=== PATIENT | male | born 1960 | race African-American/Black ===

== ENCOUNTER 2019-03-13 11:31 | Emergency (ER) | payer OTHER, SELFPAY ==
[2019-03-13 12:42] LABS: Absolute Lymphocytes (CBC) 1.3 K/uL (0.7-4.9); Absolute Monocytes 1.2 K/uL (0.1-1.3); Absolute Neutrophil 10.3 K/uL (1.8-8.0); Basophils % 0.4 % (0-1.3); Eosinophils % 0.4 % (0-4.4); Hematocrit 46.3 % (39.6-49.0); Lymphocytes % 9.8 % (15.3-44.8); Monocytes % 9.3 % (3.3-12.3); RBC Red Blood Cell Count 4.79 M/uL (4.33-5.43)
[2019-03-13 13:02] LABS: Potassium 4.1 mmol/L (3.5-5.1)
[2019-03-13] MEDS ORDERED: ACETAMINOPHEN 325 MG TABLET ONE (13:02)
--- NOTE | 2019-03-13 13:36 | RAD REPORT ---
EXAM DESCRIPTION: CT - Soft Tissue Neck W/Contr - 03/13/2019 1:20 pm CLINICAL HISTORY: Right neck pain and neck swelling COMPARISON: None. TECHNIQUE: Computed axial tomography of the neck was obtained. 50 cc Isovue 300 was administered in travenously. Coronal and sagittal reconstruction was performed. All CT scans are performed using dose optimization technique as appropriate and may include automated exposure control or mA/KV adjustment according to patient size. FINDINGS: The right submandibular gland is mildly enlarged. Edema is present within the surrounding fat and tissues of the right face. Two calculi are present within right Huron's duct with the large st measuring 12 millimeters. Mild edema is present within the right lateral aspect of the hypopharynx Mild reactive lymphadenopathy The sinuses and mastoids are clear. IMPRESSION: Two calculi within the right Huron's duct resulting in inflammation of right submandib ular gland and surrounding tissues
[2019-03-13] MEDS ORDERED: AMPICILLIN/SULBACTAM 3GM/VIAL ONE (14:44)
[2019-03-13] MEDS ORDERED: NA CHLORIDE 0.9% 250 ML ONE (14:44)
[2019-03-13] MEDS ORDERED: HYDROCODONE/APAP 5/325 MG TAB ONE (14:44)
--- NOTE | 2019-03-13 16:04 | EDPHYS ---
Physician Documentation [facility] Name: Darrell Nieves Age: 58 yrs Sex: Male : 1960 Arrival Date: 03/13/2019 Time: 11:34 Bed 18 Private MD: ED Physician Rhett Frias HPI: 03/13 15:52 This 58 yrs old Black Male presents to ER via Ambulatory with complaints of Sore gs Throat, Headache. 15:52 The patient presents with sore throat, dysphagia. Onset: The symptoms/episode gs began/occurred 2 day(s) ago. Severity of symptoms: At their worst the symptoms were severe, in the emergency department the symptoms are unchanged. Modifying factors: the symptoms are aggravated by swallowing. Associated signs and symptoms: Pertinent positives: fever. The patient has experienced similar episodes in the past, a few times. Historical: - Allergies: 11:48 No Known Allergies; iw - Home Meds: 11:48 metoprolol tartrate 25 mg Oral tab 2 tabs twice a day [Active]; Klor-Con 10 10 mEq Oral iw TbER 1 tab 2 times per day [Active]; isosorbide dinitrate 20 mg Oral tab 1 tab 3 times per day [Active]; hydralazine 25 mg oral tab 1.5 tab three times a day [Active]; furosemide 40 mg Oral tab 2 tabs twice a day [Active]; Entresto 49-51 mg Oral tab 1 tab 2 times per day [Active]; aspirin 325 mg Oral tab 1 tab once daily [Active]; - PMHx: 11:48 cardiomegaly; CHF; iw - PSHx: 11:48 None; iw - Immunization history:: Adult Immunizations not up to date. - Social history:: Smoking status: Patient uses tobacco products, smokes one-half pack cigarettes per day. - Ebola Screening: : Patient negative for fever greater than or equal to 101.5 degrees Fahrenheit, and additional compatible Ebola Virus Disease symptoms Patient denies exposure to infectious person Patient denies travel to an Ebola-affected area in the 21 days before illness onset No symptoms or risks identified at this time. ROS: 15:52 All other systems are negative. gs Exam: 15:52 Head/Face: Normocephalic, atraumatic. Eyes: Pupils equal round and reactive to light, gs extra-ocular motions intact. Lids and lashes normal. Conjunctiva and sclera are non-icteric and not injected. Cornea within normal limits. Periorbital areas with no swelling, redness, or edema. Chest/axilla: Normal chest wall appearance and motion. Nontender with no deformity. No lesions are appreciated. Cardiovascular: Regular rate and rhythm with a normal S1 and S2. No gallops, murmurs, or rubs. Normal PMI, no JVD. No pulse deficits. Respiratory: Lungs have equal breath sounds bilaterally, clear to auscultation and percussion. No rales, rhonchi or wheezes noted. No increased work of breathing, no retractions or nasal flaring. Abdomen/GI: Soft, non-tender, with normal bowel sounds. No distension or tympany. No guarding or rebound. No evidence of tenderness throughout. Back: No spinal tenderness. No costovertebral tenderness. Full range of motion. Skin: Warm, dry with normal turgor. Normal color with no rashes, no lesions, and no evidence of cellulitis. MS/ Extremity: Pulses equal, no cyanosis. Neurovascular intact. Full, normal range of motion. Neuro: Awake and alert, GCS 15, oriented to person, place, time, and situation. Cranial nerves II-XII grossly intact. Motor strength 5/5 in all extremities. Sensory grossly intact. Cerebellar exam normal. Normal gait. 15:52 Constitutional: The patient appears alert, awake. 15:52 ENT: Mouth: floor mild tender and swollen, Posterior pharynx: erythema, that is mild. 15:52 Neck: large swollen firm nonmobile mild tendersubmandibular mass. Vital Signs: 11:48 BP 168 / 101; Pulse 100; Resp 18 S; Temp 99.1(O); Pulse Ox 99% on R/A; Weight 111.13 iw kg; Height 5 ft. 10 in. (177.80 cm); Pain 8/10; 12:15 BP 155 / 105; Pulse 91; Resp 16; Pulse Ox 98% ; bp 12:54 BP 161 / 103; Pulse 90; Resp 14; Pulse Ox 97% ; bp 13:40 BP 151 / 106; Pulse 85; Resp 18; Pulse Ox 95% ; bp 14:42 BP 151 / 102; Pulse 93; Resp 18; Pulse Ox 98% ; bp 15:51 BP 154 / 97; Pulse 86; Resp 16; Pulse Ox 98% ; bp 16:48 BP 130 / 80; Pulse 93; Resp 14; Pulse Ox 99% ; bp 11:48 Body Mass Index 35.15 (111.13 kg, 177.80 cm) iw MDM: 12:09 Patient medically screened. 15:52 Differential diagnosis: group A strep tonsillitis, kezia's angina, peritonsillar gs abscess tonsillitis, sialoadenitis. Data reviewed: vital signs, nurses notes. Counseling: I had a detailed discussion with the patient and/or guardian regarding: the historical points, exam findings, and any diagnostic results supporting the discharge/admit diagnosis, the need to transfer to another facility. Response to treatment: the patient's symptoms have mildly improved after treatment. 03/13 12:10 Order name: Strep; Complete Time: 13:55 03/13 12:10 Order name: CBC with Diff; Complete Time: 13:55 03/13 12:10 Order name: CT Soft Tissue Neck W/contr; Complete Time: 13:55 03/13 12:10 Order name: Basic Metabolic Panel; Complete Time: 13:55 03/13 12:41 Order name: Throat Culture EDMS Administered Medications: 12:54 Drug: Tylenol 650 mg Route: PO; bp 13:39 Follow up: Response: No adverse reaction bp 14:30 Drug: Unasyn 3 grams Route: IVPB; Infused Over: 30 mins; Site: right forearm; bp 15:30 Follow up: IV Status: Completed infusion; IV Intake: 100ml bp 14:30 Drug: [place]se[place] 5 mg-325 mg 1 tabs Route: PO; bp 16:44 Follow up: Response: Pain is decreased bp 16:30 Drug: morphine 4 mg Route: IVP; Site: right antecubital; bp 16:47 Follow up: Response: Pain is decreased bp 16:30 Drug: Zofran 4 mg Route: IVP; Site: right antecubital; bp 16:47 Follow up: Response: No adverse reaction bp Disposition: 03/13/19 16:[address] [facility]. Diagnosis are Sialolithiasis, Sialoadenitis. - Reason for transfer: Higher level of care. - Accepting physician is pete. - Condition is Stable. - Problem is new. - Symptoms are unchanged. Critical care time excluding procedures: 15:52 Critical care time: Bedside Care: 10 minutes, Consultation: 10 minutes, Family gs Intervention: 10 minutes. Total time: 30 minutes Signatures: Dispatcher [employer] Laura Caal, RN RN iw Rhett Frias MD MD gs Peltier, Brian, RN RN bp Corrections: (The following items were deleted from the chart) 17:13 16:03 03/13/2019 16:[address] [facility]. Diagnosis is bp Sialolithiasis; Sialoadenitis. Reason for transfer: Higher level of care. Accepting physician is [facility]. Condition is Stable. Problem is new. Symptoms are unchanged. gs
--- NOTE | 2019-03-13 16:04 | ER ---
Nurse's Notes [facility] Name: Darrell Nieves Age: 58 yrs Sex: Male : 1960 Arrival Date: 03/13/2019 Time: 11:34 Bed 18 Private MD: Diagnosis: Sialolithiasis;Sialoadenitis Presentation: 03/13 11:46 Presenting complaint: Patient states: headache, sore throat X 2 days, mild cough and iw runny nose. Transition of care: patient was not received from another setting of care. Onset of symptoms was March 11, 2019. Risk Assessment: Do you want to hurt yourself or someone else? Patient reports no desire to harm self or others. Initial Sepsis Screen: Does the patient meet any 2 criteria? No. Patient's initial sepsis screen is negative. Does the patient have a suspected source of infection? No. Patient's initial sepsis screen is negative. Care prior to arrival: None. 11:46 Method Of Arrival: Ambulatory iw 11:46 Acuity: MARGARET 4 iw Triage Assessment: 11:50 General: Appears in no apparent distress. uncomfortable, Behavior is calm, cooperative, bp appropriate for age. Pain: Complains of pain in neck. EENT: Reports pain when swallowing. Neuro: Level of Consciousness is awake, alert, obeys commands, Oriented to person, place, time, situation, Appropriate for age. Cardiovascular: No deficits noted. Respiratory: Airway is patent Respiratory effort is even, unlabored, Respiratory pattern is regular, symmetrical. GI: No signs and/or symptoms were reported involving the gastrointestinal system. : No signs and/or symptoms were reported regarding the genitourinary system. Derm: No deficits noted. Musculoskeletal: Circulation, motion, and sensation intact. Range of motion: intact in all extremities. Historical: - Allergies: 11:48 No Known Allergies; iw - Home Meds: 11:48 metoprolol tartrate 25 mg Oral tab 2 tabs twice a day [Active]; Klor-Con 10 10 mEq Oral iw TbER 1 tab 2 times per day [Active]; isosorbide dinitrate 20 mg Oral tab 1 tab 3 times per day [Active]; hydralazine 25 mg oral tab 1.5 tab three times a day [Active]; furosemide 40 mg Oral tab 2 tabs twice a day [Active]; Entresto 49-51 mg Oral tab 1 tab 2 times per day [Active]; aspirin 325 mg Oral tab 1 tab once daily [Active]; - PMHx: 11:48 cardiomegaly; CHF; iw - PSHx: 11:48 None; iw - Immunization history:: Adult Immunizations not up to date. - Social history:: Smoking status: Patient uses tobacco products, smokes one-half pack cigarettes per day. - Ebola Screening: : Patient negative for fever greater than or equal to 101.5 degrees Fahrenheit, and additional compatible Ebola Virus Disease symptoms Patient denies exposure to infectious person Patient denies travel to an Ebola-affected area in the 21 days before illness onset No symptoms or risks identified at this time. Screenin:50 Abuse screen: Denies threats or abuse. Denies injuries from another. Nutritional bp screening: No deficits noted. Tuberculosis screening: No symptoms or risk factors identified. Fall Risk None identified. Assessment: 11:50 General: SEE TRIAGE NOTE. Respiratory: Airway is patent Respiratory effort is even, bp unlabored, Respiratory pattern is regular, symmetrical, Breath sounds are clear bilaterally. 12:55 Reassessment: CT PENDING, ALL OTHER ORDERS COMPLETED. RESULTS PENDING FOR DISPO. bp 13:42 Reassessment: ALL CURRENT ORDERS COMPLETED, DISPO PENDING. bp 14:42 Reassessment: ABX INFUSING, DISPO PENDING AFTER ENT C/S. bp 15:52 Reassessment: TRANSFER IN PROCESS, ADMIN APPROVAL PENDING. bp 16:30 Reassessment: ATTEMPTED TO CALL REPORT TO [facility], NURSE UNAVAILABLE. PER CHARGE bp RN, PT OKAY TO TRANSPORT PRIOR TO REPORT. 17:11 Reassessment: EMS AT B/S FOR TRANSPORT, PT HEATHER. REPORT CALLED TO [facility], 7 bp DIEGO B BED 21. Vital Signs: 11:48 BP 168 / 101; Pulse 100; Resp 18 S; Temp 99.1(O); Pulse Ox 99% on R/A; Weight 111.13 iw kg; Height 5 ft. 10 in. (177.80 cm); Pain 8/10; 12:15 BP 155 / 105; Pulse 91; Resp 16; Pulse Ox 98% ; bp 12:54 BP 161 / 103; Pulse 90; Resp 14; Pulse Ox 97% ; bp 13:40 BP 151 / 106; Pulse 85; Resp 18; Pulse Ox 95% ; bp 14:42 BP 151 / 102; Pulse 93; Resp 18; Pulse Ox 98% ; bp 15:51 BP 154 / 97; Pulse 86; Resp 16; Pulse Ox 98% ; bp 16:48 BP 130 / 80; Pulse 93; Resp 14; Pulse Ox 99% ; bp 11:48 Body Mass Index 35.15 (111.13 kg, 177.80 cm) iw ED Course: 11:34 Patient arrived in ED. mr 11:40 Vega Meraz, MALU is Primary Nurse. bp 11:47 Triage completed. iw 11:48 Rhett Frias MD is Attending Physician. gs 11:48 Arm band placed on. iw 11:50 Patient has correct armband on for positive identification. Bed in low position. Call bp light in reach. Side rails up X2. 12:24 Initial lab(s) drawn, by me, sent to lab. Strep swab sent to lab. Inserted saline lock: dh3 20 gauge in right antecubital area, using aseptic technique. Blood collected. 12:27 Radiology exam delayed due to lab results not completed at this time. (BUN/Creatinine). sj 13:20 CT completed. Patient tolerated procedure well. Patient moved to CT via wheelchair. sj Patient moved back from CT. 13:21 CT Soft Tissue Neck W/contr In Process Unspecified. EDMS 14:12 Throat Culture Sent. bp 14:41 transfer initiated with Clau at the [facility]. eb 15:20 connected the ENT doctor mental retardation nurse for [facility] with Dr. Frias for patient transfer eb consultation. 15:33 connected the hospitalist mental retardation nurse for [facility] with Dr. Frias for patient eb transfer consultation. 15:45 Clau from the [facility] called to get an extension on the transfer, eb they are arranging bed placement. 15:45 administrative approval given by Clau Forrester RN/ patient has been accepted [facility] 7 [address] B bed 16/ Dr. Carlos has accepted the patient in transfer. report to be called to [phone]. Administered Medications: 12:54 Drug: Tylenol 650 mg Route: PO; bp 13:39 Follow up: Response: No adverse reaction bp 14:30 Drug: Unasyn 3 grams Route: IVPB; Infused Over: 30 mins; Site: right forearm; bp 15:30 Follow up: IV Status: Completed infusion; IV Intake: 100ml bp 14:30 Drug: [place] 5 mg-325 mg 1 tabs Route: PO; bp 16:44 Follow up: Response: Pain is decreased bp 16:30 Drug: morphine 4 mg Route: IVP; Site: right antecubital; bp 16:47 Follow up: Response: Pain is decreased bp 16:30 Drug: Zofran 4 mg Route: IVP; Site: right antecubital; bp 16:47 Follow up: Response: No adverse reaction bp Intake: 15:30 IV: 100ml; Total: 100ml. bp Outcome: 16:03 ER care complete, transfer ordered by MD. vazquez 17:13 Patient left the ED. bp Signatures: Dispatcher [employer] EDMT BijuFranchesca Susan sj Williams, Irene, RN RN Brianna Last formerly [facility] Rhett Frias MD MD gs Peltier, Brian, RN RN Francesca Pugh Corrections: (The following items were deleted from the chart) 17:12 17:11 Reassessment: EMS AT B/S FOR TRANSPORT, PT HEATHER bp bp
[2019-03-13] MEDS ORDERED: ONDANSETRON 4 MG/2 ML VIAL ONE (16:46)
[2019-03-13] MEDS ORDERED: MORPHINE 4 MG/ML SYR ONE (16:46)
[2019-03-13 17:27] VITALS: TEMP 99.1
[2019-03-13 17:35] VITALS: BP 130/80; O2SAT 99
== END 2019-03-13 17:13 | disposition short-term general hospital (02) ==
LOC: ER 11:31
DX: K11.5 Sialolithiasis (principal); K11.20 Sialoadenitis, unspecified; I50.9 Heart failure, unspecified
CPT/HCPCS: 36415; 70491; 80048; 85025; 87070; 87081; 96365; 96375; 99284; J0295; J2405; Q9967

== ENCOUNTER 2020-08-22 | Observation (INO) | payer OTHER ==
--- OUTSIDE RECORDS SUMMARY | 2020-08-22 00:03 | XMS REPORT | Continuity of Care Document ---
:1960 Author Organization [facility] t Address [address] [place] [address] Care Team Providers Name Role Phone Pcp Primary Care Physician Unavailable ARIF Attending Clinician Unavailable ARIF Admitting Clinician Unavailable Problems Condition Condition Condition Status Onset Resolution Last Treating Co mments Source Name Details Category Date Date Treatment Clinician Date Sialoadeni Sialoadeni Disease Active [facility] Congestive Congestive Problem Active [facility] heart heart [facility] - failure, failure, Memori a unspecifie unspecifie l d HF d HF Outpati chronicity chronicity en t , , Clinics unspecifie unspecifie d heart d heart failure failure type type Cardiac Cardiac Problem Active [facility] arrhythmia arrhythmia Joan kes - , , Memoria unspecifie unspecifie l d cardiac d cardiac Outp ati arrhythmia arrhythmia en t type type Clinics Essential Essential Problem Active [facility] (primary) (primary) [facility] - hypertensi hypertensi Me moria on on l Outpati ent Clinics 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 Social History Social Habit Start Date Stop Date Quantity Comments Source History of tobacco Cigarette Sm[facility] use [facility] Sex Assigned At [facility] Joan lavon - [facility] Cigarettes smoked 2019-03-13 2019-03-13 HORTENSIA De Jesus - current (pack per 00:00:00 00:00:00 [facility] Center day) - Reported Cigarette 2019-03-13 2019-03-13 HORTENSIA De Jesus - pack-years 00:00:00 00:00:00 [facility] Tobacco use and 2019-03-13 2019-03-13 Never used [facility] Joan doll - exposure 00:00:00 00:00:00 [facility] Smoking Status Start Date Stop Date Source Current every day smoker 2019-03-13 00:00:00 [facility] Medications Ordered Filled Start Stop Current Ordering Indication Dosage Frequency Signature Comments Components Source Medication Medication Date Date Medication? Clinician (SIG) Name Name Colchicine Colchicine 2020- No Sandra [address] [facility] 6- 09-07 [place] [facility] - 00:[facility]: 00:00 Memoria 00 :00 [facility] Clinics Lantus Lantus 0 Yes Sandra [address] [facility] SoloStar SoloStar 3-25 [place] [facility] - 00:00: Memoria 00 [facility] ent Clinics aspirin 325 2018- Yes 325mg QD Take [address] MG tablet 5-17 mg by [facility] - 17:24: mouth Medical 00 daily. [place] metoprolol Yes 25mg Q.5D Take [address] (LOPRESSOR) 5-17 by mouth 2 Joan kes - 25 MG 17:24: (two) Medical tablet 00 times Center daily. potassium Yes 10meq QD Take [address] chloride 5-17 mEq by [facility] - (KLOR-CON) 17:24: mouth Medica l 10 MEQ CR 00 daily. Center tablet hydrALAZINE Yes 37.5mg [id number] Take 37.[address] (APRESOLINE 5-17 [id number] mg by L ukes - ) 25 MG 17:24: 3D mouth 3 Medical tablet 00 (three) Center times daily. furosemide Yes 40mg Q.5D Take [address] (LASIX) 40 5-17 by mouth 2 Kelsey es - MG tablet 17:24: (two) Medical 00 times Center daily. sacubitril- 2019-0 Yes 1{tbl} Q.5D Take [address] valsartan 5-17 tablet by [facility] - (ENTRESTO) 17:24: mouth 2 Medi arnaud 49-51 mg 00 (two) Center Tab times daily. isosorbide 2019-0 Yes 20mg Q.[id number] Take [address] dinitrate 5-17 [id number] by mouth 3 [facility] - (ISORDIL) 17:24: 3D (three) Medic al 20 MG 00 times Center tablet daily. HYDROcodone 2019- Yes 1{tbl} Take [address] -acetaminop 5-17 tablet by Kelsey es - hen (NORCO 00:00: mouth Medica l 5-325) 00 every 6 Center 5-325 mg (six) per tablet hours as needed for up to 20 doses. Max Daily Amount: 4 tablets Furosemide Furosemide Yes Sandra [address] [facility] [place] [facility] Metoprolol Metoprolol Yes Sandra [address] [address] Tartrate Tartrate [place] with food L ukes - [facility] l Outpati ent Clinics HydrALAZINE HydrALAZINE Yes Sandra 1.[address] HCl HCl [place] [facility] Potassium Potassium Yes Sandra [address] Chloride Chloride [place] with food L ukes - Dora ER Dora ER Memoria l [facility] Albuterol Albuterol Yes Sandra [address] Sulfate HFA Sulfate HFA [place] needed [facility] Clinics Aspirin Aspirin Yes Sandra [address] [facility] [place] [facility] Entresto Entresto Yes Sandra [address] [place] [facility] Procedures This patient has no known procedures. Encounters Start End Encounter Admission Attending Care Care Encounter Source Date/Time Date/Time Type Type Clinicians Facility Department ID 2020-07-07 2020-07-07 Outpatient Tyesha Silva [id number] [facility] 09:40:00 09:40:00 [facility] Family Medicine Medicine [facility] 2020-04-06 2020-04-06 Outpatient Tyesha Silav [id number] [facility] 09:40:00 09:40[facility]00 [facility] 2020-02-18 2020-02-18 Outpatient [place]ota[place] [facility] [id number] [facility] 10:20:00 10:20:00 [facility] 2020-01-21 2020-01-21 Outpatient Tyesha [place] [id number] 10:00:00 10:00:00 [facility] Clinics 2019-11-28 2019-11-28 Outpatient [facility] [facility] [id number] [address] 08:34:00 08:34:00 [facility] 2019-10-21 2019-10-21 Outpatient [place] [id number] [address] 10:20:00 10:20:00 [facility] Results Test Description Test Time Test Comments Results Result Comments Source CBC W/PLT COUNT & AUTO DIFFERENTIAL 2019-03-14 15:45:00 Test Item Value Reference Range Interpretation Comme nts WHITE BLOOD CELL COUNT (BEAKER) (test code = 775) 15.2 K/ L 3.5- 10.5 H RED BLOOD CELL COUNT (BEAKER) (test code = 761) 4.39 M/ L 4.63-6 .08 L HEMOGLOBIN (BEAKER) (test code = 410) 14.6 GM/DL 13.7-17.5 HEMATOCRIT (BEAKER) (test code = 411) 42.7 % 40.1-51.0 MEAN CORPUSCULAR VOLUME (BEAKER) (test code = 753) 97.3 fL 79. 0-92.2 H MEAN CORPUSCULAR HEMOGLOBIN (BEAKER) (test code = 751) 33.3 pg 25.7-32.2 H MEAN CORPUSCULAR HEMOGLOBIN CONC (BEAKER) (test code = 752) 34.2 GM/DL 32.3-36.5 RED CELL DISTRIBUTION WIDTH (BEAKER) (test code = 412) 12.5 % 11.6-14.4 PLATELET COUNT (BEAKER) (test code = 756) 178 K/CU MM 150-450 MEAN PLATELET VOLUME (BEAKER) (test code = 754) 10.9 fL 9.4-12 .4 NUCLEATED RED BLOOD CELLS (BEAKER) (test code = 413) 0 /100 WBC 0 -0 (CELLAVISION MANUAL DIFF)2019-03-14 15:45:00 Test Item Value Reference Range Interpretation Comments NEUTROPHILS - REL 76 % (CELLAVISION)(BEAKER) (test code = 2816) LYMPHOCYTES - REL 7 % (CELLAVISION)(BEAKER) (test code = 2817) MONOCYTES - REL 12 % (CELLAVISION)(BEAKER) (test code = 2818) BANDS - REL (CELLAVISION)(BEAKER) 3 % 0-10 (test code = 2826) ATYPICAL LYMPHOCYTES - REL 2 % 0-0 H (CELLAVISION)(BEAKER) (test code = 2829) NEUTROPHILS - ABS 11.55 K/ul 1.78-5.38 H (CELLAVISION)(BEAKER) (test code = 2830) LYMPHOCYTES - ABS 1.06 K/ul 1.32-3.57 L (CELLAVISION)(BEAKER) (test code = 2831) MONOCYTES - ABS 1.82 K/uL 0.30-0.82 H (CELLAVISION)(BEAKER) (test code = 2832) BANDS - ABS (CELLAVISION)(BEAKER) 0.46 K/uL 0.00-0.80 (test code = 2840) ATYPICAL LYMPHOCYTES - ABS 0.30 K/uL 0.00-0.00 H (CELLAVISION)(BEAKER) (test code = 2858) TOTAL COUNTED (BEAKER) (test code 100 = 1351) RBC MORPHOLOGY (BEAKER) (test code Normal = 762) WBC MORPHOLOGY (BEAKER) (test code Normal = 487) PLT MORPHOLOGY (BEAKER) (test code Normal = 486) ARTIFACT (CELLAVISION)(BEAKER) Present (test code = 3432) PLATELET CONCENTRATION Adequate (CELLAVISION)(BEAKER) (test code = 3438) Received comment: User comments: Slide comments:POCT-GLUCOSE [id number] 10:49:00 Test Item Value Reference Range Interpretation Comments POC-GLUCOSE METER 251 mg/dL 70-110 H TESTED AT [facility] 6720 (BEAKER) (test code = [place] 1538) [address] LACTATE DEHYDROGENASE (LDH)2019-03-14 01:28:00 Test Item Value Reference Range Interpretation Comments LACTATE DEHYDROGENASE 224 U/L 125-220 H Specim en slightly (BEAKER) (test code = hemoly zed 635) BASIC METABOLIC [id number] 01:27:00 Test Item Value Reference Range Interpretation Comments SODIUM (BEAKER) 134 meq/L 136-145 L (test code = 381) POTASSIUM (BEAKER) 4.6 meq/L 3.5-5.1 Specimen slightly (test code = 379) hemolyzed CHLORIDE (BEAKER) 102 meq/L 98-107 (test code = 382) CO2 (BEAKER) (test 20 meq/L 22-29 L code = 355) BLOOD UREA NITROGEN 12 mg/dL 7-21 (BEAKER) (test code = 354) CREATININE (BEAKER) 1.25 mg/dL 0.57-1.25 Specimen slightly (test code = 358) hemolyzed GLUCOSE RANDOM 253 mg/dL 70-105 H (BEAKER) (test code = 652) CALCIUM (BEAKER) 9.0 mg/dL 8.4-10.2 (test code = 697) EGFR (BEAKER) (test 71 mL/min/1.73 ESTIMA KURTIS GFR IS code = 1092) sq m NOT ACCURATE CREATININE CLEARANCE IN PREDICTING GLOMERULAR FILTRATION RATE . ESTIMATED GFR I S NOT APPLICABLE FOR DIALYSIS PATIEN TS. Specimen slightly ictericCBC (HEMOGRAM ONLY)2019-03-14 00:01:00 Test Item Value Reference Range Interpretation Comments WHITE BLOOD CELL COUNT (BEAKER) 18.4 K/ L 3.5-10.5 H (test code = 775) RED BLOOD CELL COUNT (BEAKER) 4.51 M/ L 4.63-6.08 L (test code = 761) HEMOGLOBIN (BEAKER) (test code = 14.8 GM/DL 13.7-17.5 410) HEMATOCRIT (BEAKER) (test code = 44.4 % 40.1-51.0 411) MEAN CORPUSCULAR VOLUME (BEAKER) 98.4 fL 79.0-92.2 H (test code = 753) MEAN CORPUSCULAR HEMOGLOBIN 32.8 pg 25.7-32.2 H (BEAKER) (test code = 751) MEAN CORPUSCULAR HEMOGLOBIN CONC 33.3 GM/DL 32.3-36.5 (BEAKER) (test code = 752) RED CELL DISTRIBUTION WIDTH 12.3 % 11.6-14.4 (BEAKER) (test code = 412) PLATELET COUNT (BEAKER) (test 184 K/CU MM 150-450 code = 756) MEAN PLATELET VOLUME (BEAKER) 11.1 fL 9.4-12.4 (test code = 754) NUCLEATED RED BLOOD CELLS 0 /100 WBC 0-0 (BEAKER) (test code = 413)
--- OUTSIDE RECORDS SUMMARY | 2020-08-22 00:03 | XMS REPORT ---
:1960 Author Organization [employer] Care Team Providers Name Role Phone Sandra Harris Provider Role Unavailable Allergies, Adverse Reactions, Alerts Substance Reaction Event Type N.K.D.A. 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 [id number] 325 MG Orally Active 1 tabl et Once a day Furosemide [facility] 33496016802 40 MG Oral Active 1 tabl et twice a day Entresto [facility] 13950894746 97-103 MG Active 1 tablet Orally Twice a day Albuterol [facility] 50405453758 108 (90 Base) Active 2 pu ffs Sulfate HFA MCG/ACT as needed Inhalation every [address] [facility] 98190534100 0.6 MG Orally Active 1 t ablet Once a day HydrALAZINE HCl [facility] 52581406643 25 MG Oral Active 1 .5 Three times a tablet day Lantus SoloStar [facility] [address]-31 100 UNIT/ML Active 14 units Subcutaneous once a day at night Metoprolol [facility] 17909178218 25 MG Orally Active 1 ta blet Tartrate Twice a day with food Potassium [facility] 90660104025 10 MEQ Oral Active 1 tabl et Chloride Dora Once a day with fo od ER Results Name Result Date Reference Range Unit Abnormali ty Flag HEMOGLOBIN A1C ----A1C 7.0 [id number] Summary Purpose [employer] Submission
--- OUTSIDE RECORDS SUMMARY | 2020-08-22 00:03 | XMS REPORT | Clinical Summary ---
:1960 Author Organization [facility] Address [address] [place] [address] Care Team Providers Name Role Phone Pcp Primary Care Provider Unavailable Allergies No Known Allergies Medications Medication Sig Dispensed Refills Start Date End Date Status aspirin 325 MG tablet Take 325 mg by 0 Active mouth daily. metoprolol (LOPRESSOR) Take 25 mg by 0 Active 25 MG tablet mouth 2 (two) times daily. potassium chloride Take 10 mEq by 0 Active (KLOR-CON) 10 MEQ CR mouth daily. tablet hydrALAZINE Take 37.5 mg by 0 Ac tive (APRESOLINE) 25 MG mouth 3 (three) tablet times daily. furosemide (LASIX) 40 Take 40 mg by 0 Active MG tablet mouth 2 (two) times daily. sacubitril-valsartan Take 1 tablet by 0 Active (ENTRESTO) 49-51 mg mouth 2 (two) Tab times daily. isosorbide dinitrate Take 20 mg by 0 Active (ISORDIL) 20 MG tablet mouth 3 (three) times daily. HYDROcodone-acetaminop Take 1 tablet by 20 tablet 0 03/14/2019 Active hen (NORCO 5-325) mouth every 6 5-325 mg per tablet (six) hours as needed for up to 20 doses. Max Daily Amount: 4 tablets Active Problems Problem Noted Date Sialoadenitis 03/13/2019 Social History Tobacco Use Types Packs/Day Years Used Date Current Every Day Smoker Cigarettes 0.5 10 Smokeless Tobacco: Never Used Tobacco Cessation: Ready to Quit: No; Co unseling Given: No Sex Assigned at Date Recorded Not on file Last Filed Vital Signs Not on file Plan of Treatment Not on file Results Not on fileafter 08/22/2019 Insurance Payer Benefit Plan / Subscriber ID Effective Dates Phone Addre ss Type Group MEDICARE MEDICARE A B [id number] 2018-Present Medicare [employer] - [place] CARE CIGNA PPO [id number] 2018-Present PPO Advance Directives For more information, please contact: [phone] Code Status Date Activated Date Inactivated Comments Full Code 03/13/2019 9:01 PM 03/14/2019 7:24 PM This code status was determined by: Patient
--- NOTE | 2020-08-22 00:24 | EDPHYS ---
Physician Documentation [facility] Name: Darrell Nieves Age: 59 yrs Sex: Male : 1960 Arrival Date: 08/22/2020 Time: 00:01 Bed 7 Private MD: ED Physician Bonilla Mcgovern HPI: 08/22 00:14 This 59 yrs old Black Male presents to ER via Wheelchair with complaints of Shortness gayla Of Breath. 00:14 The patient has shortness of breath at rest, with light activity. Onset: The gayla symptoms/episode began/occurred 1 day(s) ago. Duration: The symptoms are continuous, and are steadily getting worse. The patient's shortness of breath is aggravated by exertion, light activity, supine position. Associated signs and symptoms: Pertinent positives: non-productive cough. Severity of symptoms: At their worst the symptoms were mild moderate in the emergency department the symptoms are unchanged. The patient has experienced similar episodes in the past, multiple times. Historical: - Allergies: 00:50 unrecalled antibiotic; mg2 - Home Meds: 00:15 Entresto 49-51 mg Oral tab 1 tab 2 times per day [Active]; furosemide 40 mg Oral tab 2 mg2 tabs twice a day [Active]; hydralazine 25 mg Oral tab 1.5 tab three times a day [Active]; Klor-Con 10 10 mEq Oral TbER 1 tab 2 times per day [Active]; metoprolol tartrate 25 mg Oral tab 2 tabs twice a day [Active]; metoprolol 25 mg BID [Active]; - PMHx: 00:15 cardiomegaly; CHF; mg2 - PSHx: 00:15 None; mg2 - Immunization history:: Flu vaccine is not up to date. - Social history:: Smoking status: Patient reports the use of cigarette tobacco products, smokes one-half pack cigarettes per day, Patient uses alcohol, on a daily basis. Patient/guardian denies using street drugs, IV drugs. - Family history:: not pertinent. ROS: 00:14 Constitutional: Negative for fever, chills, and weight loss, Eyes: Negative for injury, gayla pain, redness, and discharge, ENT: Negative for injury, pain, and discharge, Neck: Negative for injury, pain, and swelling, Cardiovascular: Negative for chest pain, palpitations, and edema, Abdomen/GI: Negative for abdominal pain, nausea, vomiting, diarrhea, and constipation, Back: Negative for injury and pain, : Negative for injury, bleeding, discharge, and swelling, MS/Extremity: Negative for injury and deformity, Skin: Negative for injury, rash, and discoloration, Neuro: Negative for headache, weakness, numbness, tingling, and seizure, Psych: Negative for depression, anxiety, suicide ideation, homicidal ideation, and hallucinations, Allergy/Immunology: Negative for hives, rash, and allergies, Endocrine: Negative for neck swelling, polydipsia, polyuria, polyphagia, and marked weight changes, Hematologic/Lymphatic: Negative for swollen nodes, abnormal bleeding, and unusual bruising. 00:14 Respiratory: Positive for cough, shortness of breath, on exertion. Exam: 00:14 Constitutional: This is a well developed, well nourished patient who is awake, alert, gayla and in no acute distress. Head/Face: Normocephalic, atraumatic. Eyes: Pupils equal round and reactive to light, extra-ocular motions intact. Lids and lashes normal. Conjunctiva and sclera are non-icteric and not injected. Cornea within normal limits. Periorbital areas with no swelling, redness, or edema. ENT: Nares patent. No nasal discharge, no septal abnormalities noted. Tympanic membranes are normal and external auditory canals are clear. Oropharynx with no redness, swelling, or masses, exudates, or evidence of obstruction, uvula midline. Mucous membranes moist. Chest/axilla: Normal chest wall appearance and motion. Nontender with no deformity. No lesions are appreciated. Cardiovascular: Regular rate and rhythm with a normal S1 and S2. No gallops, murmurs, or rubs. Normal PMI, no JVD. No pulse deficits. Abdomen/GI: Soft, non-tender, with normal bowel sounds. No distension or tympany. No guarding or rebound. No evidence of tenderness throughout. Back: No spinal tenderness. No costovertebral tenderness. Full range of motion. Male : Normal genitalia with no discharge or lesions. Skin: Warm, dry with normal turgor. Normal color with no rashes, no lesions, and no evidence of cellulitis. MS/ Extremity: Pulses equal, no cyanosis. Neurovascular intact. Full, normal range of motion. Neuro: Awake and alert, GCS 15, oriented to person, place, time, and situation. Cranial nerves II-XII grossly intact. Motor strength 5/5 in all extremities. Sensory grossly intact. Cerebellar exam normal. Normal gait. Psych: Awake, alert, with orientation to person, place and time. Behavior, mood, and affect are within normal limits. 00:14 Neck: External neck: is normal, no acute changes. 00:14 Chest/axilla: Inspection: normal, no acute changes, Palpation: is normal, no acute changes, Axilla: are normal, no acute changes, Lymph nodes: lymphadenopathy is not appreciated. 00:14 Cardiovascular: Rate: normal, Rhythm: regular, Pulses: Pulses are 4+ in bilateral radial, brachial, femoral, popliteal, posterior tibial and and dorsalis pedis arteries.. Heart sounds: normal, normal S1and S2, no S3 or S4, no murmur, no rub, no gallop, Edema: is not appreciated, JVD: is noted bilaterally, to the angle of the jaw. 00:20 ECG was reviewed by the Attending Physician. gayla Vital Signs: 00:11 Weight 111.13 kg; Height 5 ft. 10 in. (177.80 cm); Pain 0/10; mg2 00:38 BP 142 / 104; Pulse 71; Resp 20; Pulse Ox 93% on R/A; mg2 00:43 Temp 98.1(TE); mg2 01:04 BP 126 / 92; Pulse 75; Resp 25; Pulse Ox 97% on 2 lpm NC; rv 02:14 BP 119 / 90; Pulse 70; Resp 20; Pulse Ox 96% on 2 lpm NC; mg2 00:11 Body Mass Index 35.15 (111.13 kg, 177.80 cm) mg2 MDM: 00:07 Patient medically screened. gayla 00:18 Differential diagnosis: Anemia Anxiety Reaction CHF exacerbation, Chronic Obstructive gayla Pulmonary Disease pneumonia, Pneumothorax pulmonary edema, Pulmonary Embolism reactive airway disease, Sepsis Unstable Angina. Antibiotic administration:. The patient's Wells Deep Vein Thrombosis Score was calculated as follows: Total Score: 0-2 Pts- Low Risk. The patient's pulmonary embolism risk score was calculated as follows: Total Score: 0-2 points. This patient was found to be at low risk for a pulmonary embolism by using the Well's assessment criteria. Immunization status: Influenza vaccine: Data reviewed: vital signs, nurses notes, lab test result(s), EKG, radiologic studies, plain films. Data interpreted: vehicle monitor technician: rate is 86 beats/min, rhythm is regular, Pulse oximetry: on 2L(s) per nasal canula, is 100 %. Test interpretation: by ED physician or midlevel provider: ECG, plain radiologic studies. 08/22 00:14 Order name: Basic Metabolic Panel; Complete Time: 01:00 [facility] 08/22 00:14 Order name: CBC with Diff; Complete Time: 00:43 [facility] 08/22 00:14 Order name: LFT's; Complete Time: 01: [facility] 08/22 00:14 Order name: Magnesium; Complete Time: : [facility] 08/22 00:14 Order name: NT PRO-BNP; Complete Time: : [facility] 08/22 00:14 Order name: PT-INR; Complete Time: : [facility] 08/22 00:14 Order name: Troponin (emerg Dept Use Only); Complete Time: : [facility] 08/22 00:14 Order name: XRAY Chest (1 view); Complete Time: 22:12 [facility] 08/22 00:30 Order name: Urine Dipstick--Ancillary (enter results); Complete Time: 01:21 [facility] 08/22 01:47 Order name: SARS-COV-2 RT PCR; Complete Time: 22:12 [facility] 08/22 00:14 Order name: EKG; Complete Time: 00:17 [facility] 08/22 00:14 Order name: Cardiac monitoring; Complete Time: 00:21 [facility] 08/22 00:14 Order name: EKG - Nurse/Tech; Complete Time: 00: [facility] 08/22 00:14 Order name: IV Saline Lock; Complete Time: 00: [facility] 08/22 00:14 Order name: Labs collected and sent; Complete Time: 00: [facility] 08/22 00:14 Order name: O2 Per Protocol; Complete Time: 00: [facility] 08/22 00:14 Order name: O2 Sat Monitoring; Complete Time: 00:43 [facility] 08/22 00:14 Order name: Urine Dipstick-Ancillary (obtain specimen); Complete Time: 00:21 [facility] EC:20 Rate is 86 beats/min. Rhythm is regular. QRS [place] is Normal. MO interval is normal. QRS gayla interval is normal. QT interval is normal. No Q waves. T waves are Normal. No ST changes noted. Clinical impression: NSR w/ Non-specific ST/T Changes and No evidence of ischemia. Interpreted by me. Reviewed by me. Administered Medications: 00:30 Drug: Lasix 60 mg Route: IVP; Site: right antecubital; rv 01:03 Follow up: Response: No adverse reaction mg2 00:37 Drug: Zofran (Ondansetron) 4 mg Route: IVP; Site: right antecubital; mg2 01:03 Follow up: Response: No adverse reaction mg2 00:38 Drug: morphine 2 mg Route: IVP; Site: right antecubital; mg2 01:03 Follow up: Response: No adverse reaction; RASS: Alert and Calm (0) mg2 01:19 Drug: Pepcid 20 mg Route: IVP; Site: right antecubital; mg2 01:47 Follow up: Response: No adverse reaction mg2 01:20 Drug: Nitro-Bid Ointment 2 % 0.5 inches Route: Transdermal; Site: anterior chest wall; mg2 01:47 Follow up: Response: No adverse reaction mg2 01:20 Drug: Lovenox 90 mg Route: Sub-Q; Site: right lower abdomen; mg2 01:47 Follow up: Response: No adverse reaction mg2 01:20 Drug: Aspirin 81 mg Route: PO; mg2 01:47 Follow up: Response: No adverse reaction mg2 Disposition: 08/22/20 00:23 Hospitalization ordered by Prince Yamilex for Inpatient Admission. Preliminary diagnosis are Dyspnea, Systolic (congestive) heart failure, Cardiomyopathy, Cardiomegaly, Unspecified kidney failure - acute on chronic. - Bed requested for Telemetry/MedSurg (Inpatient). - Status is Inpatient Admission. mg2 - Condition is Fair. - Problem is new. - Symptoms have improved. Signatures: Dispatcher [employer] EDMD Bonilla Mcgovern MD MD cha Page, Corey, PA PA cp [place], MyKena mw2 Gigi Harrison RN RN mg2 Marcus Dave RN RN rv Corrections: (The following items were deleted from the chart) 00:42 00:16 CORONAVIRUS+MR.LAB.BRZ ordered. EDMD EDMD 01:03 00:23 Hospitalization Ordered by Prince Yamilex MASSEY for Inpatient Admission. Preliminary gayla diagnosis is Dyspnea; Systolic (congestive) heart failure; Cardiomyopathy; Cardiomegaly. Bed requested for Telemetry/MedSurg (Inpatient). Status is Inpatient Admission. Condition is Fair. Problem is new. Symptoms have improved. gayla 01:52 01:03 08/22/2020 00:23 Hospitalization Ordered by Prince Yamilex MASSEY for Inpatient mw2 Admission. Preliminary diagnosis is Dyspnea; Systolic (congestive) heart failure; Cardiomyopathy; Cardiomegaly; Unspecified kidney failure - acute on chronic. Bed requested for Telemetry/MedSurg (Inpatient). Status is Inpatient Admission. Condition is Fair. Problem is new. Symptoms have improved. gayla 02:21 01:52 08/22/2020 00:23 Hospitalization Ordered by Prince Yamilex MASSEY for Inpatient mg2 Admission. Preliminary diagnosis is Dyspnea; Systolic (congestive) heart failure; Cardiomyopathy; Cardiomegaly; Unspecified kidney failure - acute on chronic. Bed requested for Telemetry/MedSurg (Inpatient). Status is Inpatient Admission. Condition is Fair. Problem is new. Symptoms have improved. mw2
--- NOTE | 2020-08-22 00:24 | ER ---
Nurse's Notes [facility] Name: Darrell Nieves Age: 59 yrs Sex: Male : 1960 Arrival Date: 08/22/2020 Time: 00:01 Bed 7 Private MD: Diagnosis: Dyspnea;Systolic (congestive) heart failure;Cardiomyopathy;Cardiomegaly;Unspecified kidney failure-acute on chronic Presentation: 08/22 00:11 Chief complaint: Spouse and/or significant other states: he has shortness of breath and mg2 cough for 2 days now. he is known case CHF. denies fever. Coronavirus screen: Client denies travel out of the [place] in the last 14 days. Client presents with at least one sign or symptom that may indicate coronavirus-19. Standard/surgical mask placed on the client. Provider contacted for isolation considerations. Ebola Screen: No symptoms or risks identified at this time. Initial Sepsis Screen: Does the patient meet any 2 criteria? No. Patient's initial sepsis screen is negative. Does the patient have a suspected source of infection? No. Patient's initial sepsis screen is negative. Risk Assessment: Do you want to hurt yourself or someone else?. Onset of symptoms was August 21, 2020. 00:11 Method Of Arrival: Wheelchair mg2 00:11 Acuity: MARGARET 2 mg2 Triage Assessment: 00:43 General: Appears uncomfortable. Respiratory: Reports shortness of breath at rest Onset: rv The symptoms/episode began/occurred suddenly, the patient has mild shortness of breath. Historical: - Allergies: 00:50 unrecalled antibiotic; mg2 - Home Meds: 00:15 Entresto 49-51 mg Oral tab 1 tab 2 times per day [Active]; furosemide 40 mg Oral tab 2 mg2 tabs twice a day [Active]; hydralazine 25 mg Oral tab 1.5 tab three times a day [Active]; Klor-Con 10 10 mEq Oral TbER 1 tab 2 times per day [Active]; metoprolol tartrate 25 mg Oral tab 2 tabs twice a day [Active]; metoprolol 25 mg BID [Active]; - PMHx: 00:15 cardiomegaly; CHF; mg2 - PSHx: 00:15 None; mg2 - Immunization history:: Flu vaccine is not up to date. - Social history:: Smoking status: Patient reports the use of cigarette tobacco products, smokes one-half pack cigarettes per day, Patient uses alcohol, on a daily basis. Patient/guardian denies using street drugs, IV drugs. - Family history:: not pertinent. Screenin:43 Abuse screen: Denies threats or abuse. Denies injuries from another. Nutritional rv screening: No deficits noted. Tuberculosis screening: No symptoms or risk factors identified. Fall Risk None identified. Assessment: 00:42 General: Appears uncomfortable, Behavior is calm, cooperative. Pain: Denies pain. rv Neuro: Level of Consciousness is awake, alert, obeys commands, Oriented to person, place, time, situation. Cardiovascular: Patient's skin is warm and dry. Rhythm is sinus rhythm. Respiratory: Airway is patent Respiratory effort is labored, Respiratory pattern is tachypnea Breath sounds are clear bilaterally. Derm: Skin is intact. 01:20 Reassessment: Patient appears in no apparent distress at this time. Patient and/or mg2 family updated on plan of care and expected duration. Pain level reassessed. Patient is alert, oriented x 3, equal unlabored respirations, skin warm/dry/pink. patient informed about the need for admission and he agreed. Vital Signs: 00:11 Weight 111.13 kg; Height 5 ft. 10 in. (177.80 cm); Pain 0/10; mg2 00:38 BP 142 / 104; Pulse 71; Resp 20; Pulse Ox 93% on R/A; mg2 00:43 Temp 98.1(TE); mg2 01:04 BP 126 / 92; Pulse 75; Resp 25; Pulse Ox 97% on 2 lpm NC; rv 02:14 BP 119 / 90; Pulse 70; Resp 20; Pulse Ox 96% on 2 lpm NC; mg2 00:11 Body Mass Index 35.15 (111.13 kg, 177.80 cm) mg2 ED Course: 00:01 Patient arrived in ED. ag3 00:04 Bonilla Brooks PA is PHCP. cp 00:04 Bonilla Mcgovern MD is Attending Physician. cp 00:11 Gigi Harrison, MALU is Primary Nurse. mg2 00:13 Bonilla Brooks PA is PHCP. cp 00:13 Triage completed. mg2 00:15 Arm band placed on. mg2 00:15 Initial lab(s) drawn, by me, sent to lab. Inserted saline lock: 20 gauge in right rv antecubital area, using aseptic technique. Blood collected. 00:22 Prince Kaminski MD is Hospitalizing Provider. gayla 00:43 Patient has correct armband on for positive identification. entry level assistant manager on. Pulse rv ox on. NIBP on. 00:44 No provider procedures requiring assistance completed. covid swab sent to lab. Patient mg2 admitted, IV remains in place. 01:04 XRAY Chest (1 view) In Process Unspecified. EDMS Administered Medications: 00:30 Drug: Lasix 60 mg Route: IVP; Site: right antecubital; rv 01:03 Follow up: Response: No adverse reaction mg2 00:37 Drug: Zofran (Ondansetron) 4 mg Route: IVP; Site: right antecubital; mg2 01:03 Follow up: Response: No adverse reaction mg2 00:38 Drug: morphine 2 mg Route: IVP; Site: right antecubital; mg2 01:03 Follow up: Response: No adverse reaction; RASS: Alert and Calm (0) mg2 01:19 Drug: Pepcid 20 mg Route: IVP; Site: right antecubital; mg2 01:47 Follow up: Response: No adverse reaction mg2 01:20 Drug: Nitro-Bid Ointment 2 % 0.5 inches Route: Transdermal; Site: anterior chest wall; mg2 01:47 Follow up: Response: No adverse reaction mg2 01:20 Drug: Lovenox 90 mg Route: Sub-Q; Site: right lower abdomen; mg2 01:47 Follow up: Response: No adverse reaction mg2 01:20 Drug: Aspirin 81 mg Route: PO; mg2 01:47 Follow up: Response: No adverse reaction mg2 Outcome: 00:23 Decision to Hospitalize by Provider. gayla 02:13 Admitted to Med/surg accompanied by tech, room 209, with chart, Report called to luis miguel Scott RN 02:13 Condition: stable 02:13 Instructed on the need for admit, Demonstrated understanding of instructions. 02:21 Patient left the ED. [facility] [place] Signatures: Dispatcher [employer] EDMS Bonilla Mcgovern MD MD cha Page, Corey, PA PA Gigi Calvert RN RN mg2 Marcus Dave RN RN Tiffanie Cardenas3
[2020-08-22 00:28] LABS: Absolute Lymphocytes (CBC) 2.3 K/uL (0.7-4.9); Basophils % 1.1 % (0-1.3); Hematocrit 44.5 % (39.6-49.0); Lymphocytes % 20.2 % (15.3-44.8); MPV 10.2 fL (7.6-11.3)
[2020-08-22 00:29] LABS: Protime INR 1.1
[2020-08-22] MEDS ORDERED: FUROSEMIDE 20 MG/ 2ML VIAL ONE (00:32)
[2020-08-22] MEDS ORDERED: ONDANSETRON 4 MG/2 ML VIAL ONE (00:33)
[2020-08-22] MEDS ORDERED: FUROSEMIDE 40 MG/4 ML VIAL ONE (00:33)
[2020-08-22] MEDS ORDERED: MORPHINE 2 MG/ML SYR ONE (00:33)
[2020-08-22 00:45] LABS: Albumin 3.5 g/dL (3.4-5.0); Bilirubin Direct 0.5 mg/dL (0-0.2); Bilirubin Total 1.7 mg/dL (0.2-1.0); Magnesium 2.2 mg/dL (1.8-2.4); Potassium 3.7 mmol/L (3.5-5.1); Protein, Total 7.3 g/dL (6.4-8.2); Troponin (Emerg Dept Use Only) 0.06 ng/mL (0.0-0.045)
[2020-08-22 01:13] LABS: Urine Blood NEGATIVE (NEG); Urine Glucose NEGATIVE (NEG); Urine Protein 3+ (NEG); Urine Specific Gravity 1.025 (1.005-1.030); Urine pH 5.5 (5.0-7.0)
[2020-08-22] MEDS ORDERED: ENOXAPARIN 100 MG/ML SYR SQ ONE (01:20)
[2020-08-22] MEDS ORDERED: FAMOTIDINE 20 MG/2 ML VIAL IV ONE (01:20)
[2020-08-22] MEDS ORDERED: NITROGLYCERIN 1 GM PKT TD ONE (01:20)
[2020-08-22] MEDS ORDERED: ASPIRIN EC 81 MG TAB PO ONE (01:20)
--- NOTE | 2020-08-22 01:27 | P.HP ---
Certification for Inpatient Patient admitted to: Inpatient With expected LOS: >2 Midnights Practitioner: I am a practitioner with admitting privileges, knowledge of patient current condition, hospital course, and medical plan of care. Services: Services provided to patient in accordance with Admission requirements found in Title 42 Section 412.3 of the Code of Federal Regulations Patient History Date of Service: 08/22/20 Reason for admission: shortness of breath History of Present Illness: Patient is a 59 year old male with known PMH of systolic CHF with severe hypokinesis with LVEF of 35% as per ECHO from 2018. He presents with a 2-day history of shortness of breath and productive cough. He is also reporting orthopnea. He also endorses occasional pedal edema after prolonged period of immobility. He is on entresto, which was recently uptitrated, and furosemide 40 mg BID. Patient insists that he has been compliant with his medications. His dietary compliance, however, has changed after he transitioned to a new seasoning product which may have a higher salt content. He uses it for most meals during the day except for breakfasts. Allergies No Known Allergies Allergy (Unverified 11/28/16 05:10) Home Medications: Aspirin Tab [[place] Aspirin*] 325 mg PO DAILY #30 tab 12/20/15 Furosemide [Lasix*] 40 mg PO BIDL #60 tab 12/20/15 Hydralazine [Apresoline*] 37.5 mg PO TID #135 tab 12/23/15 Isosorbide Dinit [Isordil*] 20 mg PO TID #90 tab 12/23/15 Metoprolol Succinate [Toprol Xl*] 50 mg PO BID 11/28/16 Potassium Oral Tab [Klor-Con 10 mEq Tab*] 10 meq PO BID 11/28/16 Sacubitril/Valsartan [Entresto 49 mg-51 mg Tablet] 1 tab PO DAILY 11/28/16 Ciprofloxacin HCl [Cipro 500 MG Tablet] 500 mg PO BID #14 tab 12/01/16 Metronidazole 500 mg PO TID #21 tablet 12/01/16 Pantoprazole [Protonix Tab*] 40 mg PO DAILY #30 tab 12/01/16 - Past Medical/Surgical History Diabetic: No -: Congestive heart failure, systolic, ejection fraction 29% -: Hypertension -: patellar reconstruction (1992) -: stone in salivary duct removal (2013) Psychosocial/ Personal History: Patient is , has 3 children, he is currently disabled. - Family History Mother -: Heart disease Father -: Hypertension, Diabetes - Social History Alcohol use: Yes CD- Drugs: No Caffeine use: Yes Physical Examination - Physical Exam General: In no apparent distress, Cooperative HEENT: Atraumatic, Normocephalic, EOMI Neck: JVD distended Respiratory: Other (bibasilar crackles. No wheezing. Unlaboured breathing) Gastrointestinal: Soft and benign, Non-distended, No tenderness Musculoskeletal: No clubbing, No swelling, No contractures, No erythema, No tenderness, No warmth Neurological: Normal speech, Sensation intact, Normal affect - Studies Laboratory Data (last 24 hrs) 08/22/20 00:15: PT 13.0 H, INR 1.10 08/22/20 00:15: WBC 11.5 H, Hgb 15.1, Hct 44.5, Plt Count 182 08/22/20 00:15: Sodium 141, Potassium 3.7, BUN 19 H, Creatinine 1.77 H, Glucose 186 H, Magnesium 2.2, Total Bilirubin 1.7 H, AST 21, ALT 29, Alkaline Phosphatase 100 Assessment and Plan - Problems (Diagnosis) (1) Acute on chronic systolic (congestive) heart failure Current Visit: Yes Status: Acute (2) CKD stage 3 due to type 2 diabetes mellitus Current Visit: Yes Status: Acute (3) Type II diabetes mellitus Current Visit: Yes Status: Acute (4) GERD (gastroesophageal reflux disease) Current Visit: No Status: Acute Qualifiers: Esophagitis presence: esophagitis presence not specified Qualified Code(s): K21.9 - Gastro-esophageal reflux disease without esophagitis - Advance Directives Does patient have a Living Will: No Does patient have a Durable POA for Healthcare: No Physician Review Additional Text: Assessment Patient is a 59 year old male with systolic CHF currently admitted with persist shortness of breath, orthopnea and cough. He is being treated for CHF exacerbation. Acute on chronic systolic CHF Type II diabetes mellitus CKD stage III Obesity PLAN: Admit inpatient with telemetry Start patient on diuresis with lasix Monitor INTAKE/OUTPUT, renal function and electrolytes Follow up 2-D echo Resume home dose of entresto, hydralazine and beta blockers if blood pressure tolerates Patient's interior wall assembler has been consulted (Dr. Young) Patient's renal function is at baseline. However, he will need an evaluation by Nephrology given stage III CKD Resume home dose of lantus 16 units qAM, along with insulin sliding scale. Check HbA1c
[2020-08-22] MEDS ORDERED: GLUCAGON 1 MG/VIAL IM PRN (02:11)
[2020-08-22] MEDS ORDERED: D50W 25 GM/50 ML SYRINGE/VIAL IV PRN (02:11)
[2020-08-22] MEDS: INSULIN -REGULAR HUMAN 50 UNIT/0.5 ML ML SQ SCH ×4 (07:30→20:20)
[2020-08-22] MEDS ORDERED: HYDRALAZINE HCL 25 MG TABLET PO SCH (09:00)
[2020-08-22] MEDS ORDERED: SACUBITRIL/VALSARTAN 49/51 MG TAB PO SCH (09:00)
[2020-08-22] MEDS: INSULIN GLARGINE 100 UNITS/ML SQ SCH (09:07)
[2020-08-22] MEDS: FUROSEMIDE 40 MG/4 ML VIAL IV SCH ×2 (09:08→16:44)
[2020-08-22] MEDS: METOPROLOL TAR 25 MG TAB PO SCH ×2 (09:08→20:21)
[2020-08-22] MEDS: ASPIRIN EC 325 MG TABLET PO SCH (09:08)
[2020-08-22] MEDS: COLCHICINE 0.6 MG TAB PO SCH (09:08)
--- NOTE | 2020-08-22 09:29 | RAD REPORT ---
EXAM DESCRIPTION: RAD - Chest Single View - 08/22/2020 1:03 am CLINICAL HISTORY: DYSPNEA COMPARISON: Portable November 2016 TECHNIQUE: AP portable chest image was obtained 08/22/2020 1:03 am . FINDINGS: Interstitial markings are prominent. No focal consolidation or mass. Cardiomegaly is prese nt increased over the prior study. There is central vascular engorgement present. No measurable pleur al effusion and no pneumothorax. No acute bony abnormality seen. No acute aortic findings suspected. IMPRESSION: Mild to moderate severity CHF/ volume overload pattern.
[2020-08-22] MEDS ORDERED: PNEUMOCOCCAL VACCINE 0.5 ML IMVAC ONE (10:00)
--- NOTE | 2020-08-22 11:16 | CON ---
Date of Consultation: 08/22/2020 Reason For Consultation: Congestive heart failure. History Of Present Illness: Mr. Nieves is a 59-year-old black male, who is a patient of mine, who has not been to the office for quite some time because of the COVID virus. He is supposed to have an appointment in my office coming up soon. He is noted to have an ejection fraction of 33%. He has c hronic systolic congestive heart failure. He came in with CHF exacerbation. He did admit to eating more salt recently. He denied any chest pain, nausea, vomiting, diaphoresis. He denied palpitations or syncope. He did have PND, orthopnea, and pedal edema that have improved a lot after the IV Lasix . Past Medical History: Includes congestive heart failure, gout, hypertension, diabetes. Review of Systems: Negative. Social History: Negative. Family History: Negative. Medications: Include aspirin, colchicine, Lasix, hydralazine, insulin, metoprolol, potassium, and En tresto. Physical Examination: General: He weighed 250 pounds. He is a very pleasant, in no acute distress. Vital Signs: Stable. He was afebrile. He was in sinus rhythm. HEENT: Negative. Neck: Supple without any bruit, lymphadenopathy, JVD, or thyromegaly. Chest: Revealed some expiratory wheezing, but no rales. Cardiac: Revealed a regular rhythm and rate with no murmurs, gallops, or rubs. Abdomen: Benign. Extremities: Revealed only trace edema. Diagnostic Data: His creatinine is 1.77, glucose was 188. Troponin was 0.06. BNP was 7220. Impression And Plan: 1.Acute on chronic systolic congestive heart failure exacerbation. The patient needs to go back on his medications including Entresto and metoprolol. He is on IV Lasix for now q.8 hours 40 mg and we will continue that dose. We should put him back on his hydralazine. 2.Gout. He should be on colchicine. 3.Hypertension, well controlled, on hydralazine and metoprolol. 4.Diabetes, on insulin, well controlled. 5.Renal insufficiency, stage III. We need to be observe onto that with his diuresis and Entresto. We will check on that periodically as an outpatient. His troponin elevation and BNP elevation are se condary to renal insufficiency and congestive heart failure. He does not need any further interventi onal cardiac workup at this point. An echocardiogram is pending for tomorrow and I agree with that. He should be able to go home tomorrow after his echocardiogram with his home medications which inclu de Lasix 40 b.i.d. and he was instructed on low-salt intake and he will keep a blood pressure log and he will see me in the office in the future. HARMAN/GRAEME Voice ID: [id number] Report ID: [id number]
[2020-08-22 17:07] VITALS: O2SAT 97
[2020-08-23] MEDS: FUROSEMIDE 40 MG/4 ML VIAL IV SCH ×2 (00:12→08:57)
[2020-08-23 04:50] VITALS: BMI 35.4
[2020-08-23 06:03] LABS: Absolute Lymphocytes (CBC) 2.3 K/uL (0.7-4.9); Basophils % 0.9 % (0-1.3); Lymphocytes % 29.7 % (15.3-44.8); MPV 10.5 fL (7.6-11.3); RBC Red Blood Cell Count 4.14 M/uL (4.33-5.43)
[2020-08-23 06:15] LABS: Bilirubin Total 0.9 mg/dL (0.2-1.0); Magnesium 2.1 mg/dL (1.8-2.4); Phosphorus 3.2 mg/dL (2.5-4.9); Potassium 3.6 mmol/L (3.5-5.1); Protein, Total 6.6 g/dL (6.4-8.2)
--- NOTE | 2020-08-23 07:02 | P.PN ---
Subjective Date of Service: 08/22/20 Patient is still short of breath. Symptoms are improved mildly. Patient has significant pulmonary edema on chest x-ray. Patient's prior echocardiogram revealed an ejection fraction of 25-30%. Before this he had an ejection fraction of 14%. Hopefully, he will continue to improve. Otherwise, no new com plaints. Review of Systems 10-point ROS is otherwise unremarkable Physical Examination - Vital Signs Temperature: 97.2 F Blood Pressure: 113/82 Pulse: 76 Respirations: 16 Pulse Ox (%): 97 - Physical Exam General: Alert, In no apparent distress, Oriented x3 Respiratory: Diminished, Expiratory wheezes Cardiovascular: Regular rate/rhythm, Normal S1 S2, No murmurs Gastrointestinal: Normal bowel sounds, Soft and benign, Non-distended, No tenderness Musculoskeletal: No clubbing, No swelling, No tenderness Neurological: Sensation intact, Cranial nerves 3-12 intact - Studies Medications List Reviewed: Yes Assessment & Plan - Problems (Diagnosis) (1) Acute on chronic systolic (congestive) heart failure Current Visit: Yes Status: Acute (2) CKD stage 3 due to type 2 diabetes mellitus Current Visit: Yes Status: Acute (3) Type II diabetes mellitus Current Visit: Yes Status: Acute (4) Left heart failure with left ejection fraction less than or equal to 30 percent Current Visit: Yes Status: Acute (5) Acute respiratory failure Current Visit: Yes Status: Acute Qualifiers: Respiratory failure complication: hypoxia Qualified Code(s): J96.01 - Acute respiratory failure with hypoxia - Plan 1. Echocardiogram 2. Continue cardiac meds 3. monitor volume status closely; oxygen per protocol 4. Cardiology consultation 5. Aggressive diuresis 6. Strict I's and O's 7. Repeat CXR 8. Daily weights 9. Education regarding diet and treatment of congestive heart failure Discharge Plan: Home Plan to discharge in: Greater than 2 days - Advance Directives Does patient have a Living Will: No Does patient have a Durable POA for Healthcare: No - Code Status/Comfort Care Code Status Assessed: Yes Code Status: Full Code Critical Care: No Time Spent Managing PTS Care (In Minutes): 35
[2020-08-23] MEDS: INSULIN -REGULAR HUMAN 50 UNIT/0.5 ML ML SQ SCH ×2 (07:30→11:30)
[2020-08-23] MEDS: INSULIN GLARGINE 100 UNITS/ML SQ SCH (08:00)
--- NOTE | 2020-08-23 08:36 | P.DS ---
Admission Date: 08/22/20 Discharge Date: 08/23/20 Primary Care Provider: Viktor Harris NP; Cardiology-Dr. Navarro Disposition: ROUTINE DISCHARGE Discharge Condition: GOOD Reason for Admission: shortness of breath Consultations: Cardiology-Dr. Navarro Procedures: ECHO: Performed. COVID: negative. CXR: FINDINGS: Interstitial markings are prominent. No focal consolidation or mass. Cardiomegaly is present increased over the prior study. There is central vascular engorgement present. No measurable pleural effusion and no pneumothorax. No acute bony abnormality seen. No acute aortic findings suspected. IMPRESSION: Mild to moderate severity CHF/ volume overload pattern. Medical Problem List: Acute on chronic respiratory failure with hypoxia secondary to acute on chronic systolic CHF Diabetes mellitus type 2, insulin-dependent, controlled Chronic renal disease stage III Hypertension Gout Obesity, BMI 35 Brief History of Present Illness: 59-year-old male presented to the emergency room with increasing shortness of breath, pedal edema and cough. Patient found to have acute on chronic respiratory failure related to acute on chronic systolic CHF. Prior ejection fraction around 30%. Patient was admitted for further evaluation and treatment. Patient started on IV Lasix. Hospital Course: Patient presented with acute on chronic respiratory failure with hypoxia secondary to acute on chronic systolic CHF. Patient also with history of hypertension. Chest x-ray revealed CHF. Patient was admitted to the hospital and started on IV diuresis. Patient condition improved. At discharge patient without significant shortness of breath, edema to the lower extremity and cough. Patient was taught on 1500 cc per day fluid restriction. Patient continued with his medications. Patient has done well. No requirement for home oxygen was required. At discharge patient will also continue with a 1500 cc per day fluid restriction and low-salt diet. Recommend to monitor his weight daily. If his weight increases by more than 5 lb he is to contact his PCP or cardiology for further recommendation. At discharge patient will continue with Lasix 40 mg 1 pill twice daily along with potassium supplementation-Klorcon 10 mg daily. Patient may need to take additional Lasix if with increased shortness of breath and edema to the lower extremity. This can be further adjusted and monitored by Cardiology. At discharge patient will also continue with his current medications of Entresto 97/103 mg 1 pill twice daily, aspirin 325 mg daily, and hydralazine 25 mg 1.5 pills 3 times a day. Recommend to monitor his blood pressure daily. Recommend to maintain blood pressure less than 130/80. Patient may need to hold hydralazine if blood pressure less than 110 systolic. Further adjustment in medication can be done by cardiology or his PCP. Education on CHF will be provided. Recommend follow up with cardiology in 1-2 weeks to follow up this hospitalization. Patient with diabetes mellitus type 2 insulin dependent. A1c 6.5. Diabetes well controlled. At discharge recommend to monitor his blood sugars at least twice daily. Recommend to continue with Lantus 16 units subcu daily. Recommend to maintain blood sugar less than 140 fasting and less than 200 after meals. Further adjustment can be done by his PCP. Patient with chronic renal disease stage III. This appears stable. Recommend no further use of nonsteroidal anti-inflammatories. Future medications may need to be renally dose. Patient would benefit with nephrology evaluation as an outpatient to further monitor and address. Patient with gout. At discharge patient will continue with his medication colchicine 0.6 mg daily. Recommend follow up with PCP to further monitor and address. Vital Signs/Physical Exam: Temp Pulse Resp BP Pulse Ox 97.2 F 76 16 113/82 97 08/23/20 07:02 08/23/20 07:02 08/23/20 07:02 08/23/20 07:02 08/23/20 07:02 General: Alert, In no apparent distress, Oriented x3, Cooperative HEENT: Atraumatic Neck: Supple Respiratory: Clear to auscultation bilaterally, Normal air movement Cardiovascular: Normal pulses, Regular rate/rhythm Gastrointestinal: Normal bowel sounds, Soft and benign, Non-distended, No tenderness, No masses, No rebound, No guarding Musculoskeletal: No erythema, No tenderness, No warmth Integumentary: No tenderness/swelling, No erythema, No warmth, No cyanosis Neurological: Normal speech, Normal strength at 5/5 x4 extr, Normal tone, Normal affect Laboratory Data at Discharge: WBC 7.7 K/uL (4.3-10.9) D 08/23/20 05:23 Hgb 14.2 g/dL (13.6-17.9) 08/23/20 05:23 Hct 41.0 % (39.6-49.0) 08/23/20 05:23 Plt Count 148 K/uL (152-406) L 08/23/20 05:23 PT 13.0 SECONDS (9.5-12.5) H 08/22/20 00:15 INR 1.10 08/22/20 00:15 Sodium 143 mmol/L (136-145) 08/23/20 05:23 Potassium 3.6 mmol/L (3.5-5.1) 08/23/20 05:23 BUN 22 mg/dL (7-18) H 08/23/20 05:23 Creatinine 1.59 mg/dL (0.55-1.3) H 08/23/20 05:23 Glucose 132 mg/dL (74-106) H 08/23/20 05:23 Phosphorus 3.2 mg/dL (2.5-4.9) 08/23/20 05:23 Magnesium 2.1 mg/dL (1.8-2.4) 08/23/20 05:23 Total Bilirubin 0.9 mg/dL (0.2-1.0) 08/23/20 05:23 AST 18 U/L (15-37) 08/23/20 05:23 ALT 24 U/L (12-78) 08/23/20 05:23 Alkaline Phosphatase 95 U/L (45-117) 08/23/20 05:23 Troponin I 0.05 ng/mL (0.0-0.045) H 08/22/20 17:50 Home Medications: Aspirin [Aspirin EC 325 MG] 325 mg PO DAILY 08/22/20 Colchicine 0.6 mg PO DAILY 08/22/20 Furosemide 40 mg PO BID 08/22/20 Hydralazine [Apresoline*] 1.5 tab PO TID 08/22/20 Insulin Glargine,Hum.rec.anlog [Lantus Solostar] 16 units SQ DAILY WITH BREAKFAST 08/22/20 Metoprolol Tartrate 25 mg PO BID 08/22/20 Potassium Chloride [Klor-Con 10] 10 meq PO DAILY 08/22/20 Sacubitril/Valsartan [Entresto 97 mg-103 mg Tablet] 1 each PO BID 08/22/20 Patient Discharge Instructions: 1. Recommend follow up with PCP in 1 week to follow up this hospitalization. 2. Patient presented with acute on chronic respiratory failure with hypoxia secondary to acute on chronic systolic CHF. Patient also with history of hypertension. Chest x-ray revealed CHF. Patient was admitted to the hospital and started on IV diuresis. Patient condition improved. At discharge patient without significant shortness of breath, edema to the lower extremity and cough. Patient was taught on 1500 cc per day fluid restriction. Patient continued with his medications. Patient has done well. No requirement for home oxygen was required. At discharge patient will also continue with a 1500 cc per day fluid restriction and low-salt diet. Recommend to monitor his weight daily. If his weight increases by more than 5 lb he is to contact his PCP or cardiology for further recommendation. At discharge patient will continue with Lasix 40 mg 1 pill twice daily along with potassium supplementation-Klorcon 10 mg daily. Patient may need to take additional Lasix if with increased shortness of breath and edema to the lower extremity. This can be further adjusted and monitored by Cardiology. At discharge patient will also continue with his current medications of Entresto 97/103 mg 1 pill twice daily, aspirin 325 mg daily, and hydralazine 25 mg 1.5 pills 3 times a day. Recommend to monitor his blood pressure daily. Recommend to maintain blood pressure less than 130/80. Patient may need to hold hydralazine if blood pressure less than 110 systolic. Further adjustment in medication can be done by cardiology or his PCP. Education on CHF will be provided. Recommend follow up with cardiology in 1-2 weeks to follow up this hospitalization. 3. Patient with diabetes mellitus type 2 insulin dependent. A1c 6.5. Diabetes well controlled. At discharge recommend to monitor his blood sugars at least twice daily. Recommend to continue with Lantus 16 units subcu daily. Recommend to maintain blood sugar less than 140 fasting and less than 200 after meals. Further adjustment can be done by his PCP. 4. Patient with chronic renal disease stage III. This appears stable. Recommend no further use of nonsteroidal anti-inflammatories. Future medications may need to be renally dose. Patient would benefit with nephrology evaluation as an outpatient to further monitor and address. 5. Patient with gout. At discharge patient will continue with his medication colchicine 0.6 mg daily. Recommend follow up with PCP to further monitor and address. 6. Patient with obesity, BMI 35. Lifestyle modification education provided. Diet: ADA (with 1500 cc per day fluid restriction and low salt) Activity: Ad michela Followup: Sandra Harris NP [Primary Care Provider] - Time spent managing pt's care (in minutes): 55
[2020-08-23] MEDS: METOPROLOL TAR 25 MG TAB PO SCH (08:56)
[2020-08-23] MEDS: COLCHICINE 0.6 MG TAB PO SCH (08:57)
[2020-08-23] MEDS: ASPIRIN EC 325 MG TABLET PO SCH (08:57)
[2020-08-23] MEDS ORDERED: SACUBITRIL/VALSARTAN 49/51 MG TAB PO SCH (09:00)
--- NOTE | 2020-08-23 09:47 | RAD REPORT ---
EXAM DESCRIPTION: RAD - Chest Pa And Lat (2 Views) - 08/23/2020 8:28 am CLINICAL HISTORY: follow up CHF Chest pain. COMPARISON: Chest Single View dated 08/22/2020; Chest Single View dated 11/30/2016; Chest Single View dated 11/27/2016; Chest Pa And Lat (2 Views) dated 10/30/2016 FINDINGS: Mild pulmonary edema is seen. The heart is moderately enlarged in size. No displaced fract ures. IMPRESSION: Mild CHF.
[2020-08-23] MEDS ORDERED: INFLUENZA VACCINE (for 3y+) 0.5 ML DOSE IMVAC ONE (10:00)
[2020-08-23] MEDS ORDERED: PNEUMOCOCCAL VACCINE 0.5 ML IMVAC ONE (10:00)
[2020-08-23 14:10] VITALS: BP 122/79; TEMP 97
--- NOTE | 2020-08-23 15:04 | ECHO ---
HEIGHT: 5 ft 10 in WEIGHT: 247 lb 6.4 oz DATE OF STUDY: 08/23/[address]: Prince Mor Kaminski MD 2-DIMENSIONAL: YES M.MODE: YES DOPPLER: YES COLOR FLOW: YES TDS: NO PORTABLE: NO DEFINITY: NO BUBBLE STUDY: NO DIAGNOSIS: CONGESTIVE HEART FAILURE CARDIAC HISTORY: CATHERIZATION: SURGERY: PROSTHETIC VALVE: PACEMAKER: MEASUREMENTS (cm) DIASTOLIC (NORMALS) SYSTOLIC (NORMALS) IVSd 1.2 (0.6-1.2) LA Diam 4.9 (1.9-4.0) LVEF 18% LVIDd 7.0 (3.5-5.7) LVIDs 6.4 (2.0-3.5) %FS 8% LVPWd 1.2 (0.6-1.2) Ao Diam 2.9 (2.0-3.7) 2 DIMENSIONAL ASSESSMENT: RIGHT ATRIUM: NORMAL LEFT ATRIUM: ENLARGED RIGHT VENTRICLE: NORMAL LEFT VENTRICLE: SEVERELY DILATED LEFT VENTRICLE. TRICUSPID VALVE: MILD TRICUSPID REGURGITATION MITRAL VALVE: MODERATE MITRAL REGURGITATION PULMONIC VALVE: NORMAL AORTIC VALVE: NORMAL PERICARDIAL EFFUSION: NONE AORTIC ROOT: NORMAL LEFT VENTRICULAR WALL MOTION: SEVERE GLOBAL HYPOKINESIS. DOPPLER/COLOR FLOW: MODERATE PULMONARY HYPERTENSION - RIGHT VENTRICULAR SYSTOLIC PRESSURE 50-55mmHg. COMMENTS: SEVERE LEFT VENTRICULAR DYSFUNCTION, EJECTION FRACTION 15-20% WITH SEVERE GLOBAL HYPOKINESIS. MODERATE PULMONARY HYPERTENSION WITH RIGHT VENTRICULAR SYSTOLIC PRESSURE OF 50-55mmHg. MILD TRICUSPID REGURGITATION, MODERATE MITRAL REGURGITATION. RESTRICTIVE (SEVERE) DIASTOLIC DYSFUNCTION WITH ELEVATED FILLING PRESSURE. TECHNOLOGIST: DELMAR SANCHEZ
--- NOTE | 2020-08-24 10:11 | EKG ---
Test Date: 2020-08-22 Test Time: 00:14:33 Milling Operator: RV MEASUREMENT RESULTS: Intervals: Rate: 86 ND: 164 QRSD: 106 QT: 404 QTc: 483 [place]: P: 30 ND: 164 QRS: 268 T: 7 INTERPRETIVE STATEMENTS: Normal sinus rhythm Possible Left atrial enlargement Right superior axis deviation Pulmonary disease pattern Inferior infarct, age undetermined Abnormal ECG Compared to ECG 11/27/2016 22:17:23 Right superior axis now present Sinus tachycardia no longer present Atrial premature complex(es) no longer present Left anterior fascicular block no longer present Myocardial infarct finding still present Electronically Signed On 08-24-20 10:07:03 CDT by Ruy Navarro
== END 2020-08-23 15:50 | disposition home or self-care (01) ==
LOC: ER → ERHOLD 02:06 → INTOOBSV 02:06 → 2ND 02:18
PROVIDERS: ADMIT Internal Medicine; ATTEND Family Medicine
DX: I13.0 Hypertensive heart and chronic kidney disease with heart failure and stage 1 through stage 4 chronic kidney disease, or unspecified chronic kidney disease (principal); I50.23 Acute on chronic systolic (congestive) heart failure; N18.30 Chronic kidney disease, stage 3 unspecified; E11.22 Type 2 diabetes mellitus with diabetic chronic kidney disease; J96.21 Acute and chronic respiratory failure with hypoxia; K21.9 Gastro-esophageal reflux disease without esophagitis; M10.9 Gout, unspecified
CPT/HCPCS: 93005; 93306; 85025 ×2; 80048; 36415 ×2; 83735 ×2; 84100; 85610; 82947 ×6; 80076; 81003; 83036; 84484 ×3; 80053; 83880 ×2; 71045; 71046; 90471 ×2; 90732; 96375; 96372; 96374; 99285; U0003; J1940 ×6; Q2035; J1650; J2270; J2405; G0378 ×3; J1815